=== PATIENT | female | born 1980 | race Caucasian/White ===

== ENCOUNTER → 2018-11-11 08:55 | Outpatient (CLI) | payer OTHER, SELFPAY ==
[2018-11-11 08:22] VITALS: BMI 25.5
[2018-11-11 09:24] LABS: Absolute Lymphocyte Count 1.61 X10^3/ul (0.83-4.51); Absolute Neutrophil Count 2.9 X10^3/uL (2.0-7.7); Basophil# 0.02 X10^3/uL; Basophil% 0.4 % (0-1); Eosinophil# 0.09 X10^3/uL; Eosinophils% 1.8 % (0-5); Hematocrit 43.8 % (37-47); Hemoglobin 14.5 g/dl (12.0-15.0); Lymphocyte # 1.61 X10^3/ul (4.0); Lymphocyte % 32.1 % (19-41); Mean Corp Hgb Conc 33.1 g/gl (32-36); Mean Corpuscular Hgb 29.4 pg (27.0-32.0); Mean Corpuscular Volume 88.7 fL (81-99); Mean Platelet Vol. 12.3 fl (6.2-12.0); Monocyte# 0.41 X10^3/uL; Monocyte% 8.2 % (0-10); Neutrophil # 2.88 X10^3/uL (2.7-7.7); Neutrophil % 57.5 % (47-70); POSITIVE COUNT NO; POSITIVE DIFFERENTIAL NO; POSITIVE MORPHOLOGY NO; Platelet Count 206 K/mm3 (150-450); RBC Distribution Width CV 12.7 % (11.6-14.6); Red Blood Count 4.94 M/mm3 (4.2-5.4)
[2018-11-11 09:56] LABS: Follicle Stimulating Hormone 9.7 mIU/mL; Thyroid Stim Hormone (TSH) 1.91 uIU/mL (0.358-3.74)
--- OUTSIDE RECORDS SUMMARY | 2018-12-28 02:26 | XMS RPT_ITS ---
:1980 Author Organization OHIP Care Team Providers Name Role Phone SWATHI WEEMS Attending Unavailable KULWINDER TSAI Primary Care Unavailable Candi Berry Attending Unavailable Kulwinder Tsai Referring Unavailable Candi Berry Attending Unavailable Candi Berry Referring Unavailable Kulwinder Tsai Primary Care Unavailable Candi Berry Attending Unavailable Kulwinder Tsai Primary Care Unavailable Candi Berry Attending Unavailable Kulwinder Tsai Referring Unavailable PROBLEMS PROBLEMS DATE TYPE CONDITION / CODE ATTENDING STATUS SOURCE 11/18/2018 Unknown Z97.5 - Presence of Candi Berry Active [place] (intrauterine) [facility] contraceptive Hospital device / Repository Z97.5(ICD-10) 11/18/2018 Unknown Z30.432 - Encounter JamalCandi braun Active [place] for removal of [facility] intrauterine Hospital contraceptive Repository device / Z30.432(ICD-10) 11/18/2018 Unknown Z30.433 - Encounter [place], Molly Active [place] for removal and Community reinsertion of Hospital intrauterine Repository contraceptive device / Z30.433(ICD-10) 11/11/2018 Unknown R23.2 - [place] / [place], Molly Active [place] R23.2(ICD-10) [facility] Hospital Repository 06/08/2018 Admitting Ganglion, left WEEMS, SWATHI Active [facility] diagnosis wrist / MISHEL Three M67.432(ICD-10) Repository 09/27/2018 Unknown Z12.31 - Encounter Candi Berry Active [place] for screening [facility] mammogram for Hospital malignant neoplasm Repository of breast / Z12.31(ICD-10) PROCEDURES PROCEDURES No Procedure Records FoundRESULTS RESULTS SPECIAL EVENTS PLANNER OFFICE VISIT Observed: 11/25/2018 Status: F Source: M[place]ANIE REPORT 1:11 PM [facility] HOSPITAL REPOSITORY [facility] [address] [place] [address]. [address] [place] [address] OFFICE VISIT Date of Service: 11/11/18 MR#: [id number] Acct: [id number] Name: DAE JEFFREY Rep #: [id number] : 1980 Provider: IRWIN Berry Age/Sex: 38/F [place] [facility] [place]: Signed with Addenda ADDENDUM by IRWIN Berry on 11/25/18 at 1311 Addendum entered and electronically signed by DAFNE Vargas 11/25/18 13:11: Assessment AND Plan Problems 1. Encounter for gynecological examination without abnormal finding Z01.419 2. Encounter for removal and reinsertion of intrauterine contraceptive device (IUD) Z30.433 3. Hot flashes R23.2 Plan - DAFNE Vargas Completed breast and pelvic exam Reviewed diet and exercise Pap 2014 Mammogram ordered Contraception will arrange for removal and replacement of iud FSH, TSH, CBC RTO 1 year, prn with problems Candi Berry ELECTROPLATER APPRENTICE Orders Orders: 11/25/18 1311 <Electronically signed by Candi LEOS> Date Candi Berry cc: * Signed ADDENDUM by IRWIN Berry on 11/25/18 at 1311 OFFICE PROCEDURES Office Procedure Documentation entered by DAFNE Vargas 11/25/18 13:11: IUD Removal IUD Removal Details: Sign out documentation: Completed Procedure: Speculum placed in vagina, IUD string visualized and grasped with ring forceps. 11/25/18 1311 <Electronically signed by Candi LEOS> Date Candi Berry cc: * Signed Intake Vital Signs11/11/18 Height 5 ft 6 in 11/11/18 Weight: 158 lb 4 oz 11/11/18 Body Mass Index (BMI) 25.5 11/11/18 Blood Pressure 102/62 Intake Visit Reasons: est annual last seen 10/07/2017 Chief Complaint: est annual Network Designer Required: No Is patient in pain?: No Allergies No Known Allergies Allergy (Unverified 11/11/18 08:22) Is last menstrual period known: No Post menopausal: No Patient : No : No [facility] Medical History History of abnormal cervical Pap smear (Acute) Surgical History History of neck surgery (Acute) Family History Grandmother Breast cancer Mother Breast cancer Social History Smoking Status: Never smoker alcohol intake: never substance use type: does not use caffeine: Yes what type of physical activity do you participate in: walking seatbelt use: always do you feel safe at home: Yes 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 Pregancy History 3 Elective abortions Hx Para 3 Spontaneous abortions Past Pregnancies Del. DateName GA/Weeks Outcome Route Bth WeighInfant GeLabor LgtAnesthesiDel LocatProvider FOB t n h a n HPI est annual last seen 10/07/2017: Details: DAE JEFFREY is a 38 year old who presents for annual exam. Having night sweats. Needs mirena replaced Last PAP: 2014 History of abnormal PAP: no Last mammogram: 2016 History of abnormal mammogram: no Female Reproductive History Questions: Metorrhagia: No, Sexually active: Yes, Dyspareunia: No, PCB: No Menopausal Symptoms: Yes hot flashes ROS Const Constitutional: Reports as per HPI Cardio Card: Denies chest pain Resp Resp: Denies cough or shortness of breath with activity GI GI: Denies abdominal pain, constipation, change in stools, vomiting or bloating : Reports as per HPI and hot flashes; denies urinary frequency, pelvic pain, urinary urgency, vaginal discharge, vaginal itching, urinary incontinence or difficulty urinating Exam Const General: cooperative, healthy appearing, no acute distress, well developed Orientation: alert, oriented to person, oriented to place HENMT Head: normal to inspection Neck Neck: normal visual inspection Thyroid: thyroid normal Lymphatic: no lymphadenopathy noted Chest Breast inspection: normal inspection of the breasts, normal inspection of the axillae Breast palpation: normal palpation of the breasts, normal palpation of the axillae, no axillary lymphadenopathy Resp Effort AND Inspection: normal respiratory effort GI Palpation: soft, nontender, no masses Rectal Exam: deferred External Female Exam: normal external appearance, normal appearance of the urethra Urethra: normal appearance of the urethra, normal palpation Speculum Exam - Vagina: normal appearance of the vagina, normal vaginal discharge Speculum Exam - Cervix: normal appearance of the cervix Bimanual Exam- Vagina AND Uterus: normal bimanual exam, uterine size normal, uterine shape normal, uterus non-tender Bimanual Exam- Adnexa, other: normal adnexae, no adnexal masses, adnexae non-tender, pelvic support normal Pelvic Support: normal Neuro General: alert, oriented x3 Psych Affect: normal affect Assessment AND Plan Problems 1. Encounter for gynecological examination without abnormal finding Z01.419 2. Encounter for removal and reinsertion of intrauterine contraceptive device (IUD) Z30.433 3. Hot flashes R23.2 Plan Completed breast and pelvic exam Reviewed diet and exercise Pap 2014 Mammogram ordered Contraception will arrange for removal and replacement of iud FSH, TSH, CBC RTO 1 year, prn with problems Candi Berry ELECTROPLATER APPRENTICE Orders Orders: Coding Level of Care Code Off vis,est,prev 40-64yrs Diagnoses Encounter for gynecological examination without abnormal finding Z01.419 Gynecological examination findings: abnormal findings ABSENT Encounter for removal and reinsertion of intrauterine contraceptive device (IUD) Z30.433 Contraceptive encounter type: IUD management IUD management: removal and reinsertion Hot flashes R23.2 11/11/18 0913 <Electronically signed by Candi LEOS> Date Candi LEOS Cosigner Signature: Date (if applicable) CC: SPECIAL EVENTS PLANNER OFFICE VISIT Observed: 11/18/2018 Status: F Source: MELANIE REPORT 3:41 PM [facility] REPOSITORY [facility] [address] [place] [address] OFFICE VISIT Date of Service: 11/18/18 MR#: [id number] Acct: [id number] Name: DAE JEFFREY [place] Rep #: [id number] : 1980 Provider: IRWIN Berry Age/Sex: 38/F [place] [facility] [place]: Signed with Addenda ADDENDUM by Dior Simon on 11/18/18 at 1546 OFFICE PROCEDURES Office Procedure Documentation entered by Dior Simon 11/18/18 15:41: Office Meds levonorgestrel Performing Provider: DAFNE Vargas Administered by: DAFNE Vargas on 11/18/18 14:45 Dose Route Admin Location Lot Number Expiration Date [facility] Bumper Operator 1 insert Intrauterine [place] [id number] 07/30/22 9767-4898-11 [employer] levonorgestrel Performing Provider: DAFNE Vargas Documented (not given) by: Dior Simon on 11/18/18 15:40 11/18/18 1541 <Electronically signed by Dior Simon > Date Dior Simon cc: * Signed ADDENDUM by Dior Simon on 11/18/18 at 1540 OFFICE PROCEDURES Office Procedure Documentation entered by Dior Simon 11/18/18 15:40: Liletta IUD IUD Details: Sign in Communication: Completed Sign out documentation: Completed The uterus sounded to [] cm. After prepping the cervix with betadine and using sterile technique, the cervix was grasped with a single tooth tenaculum and the IUD was inserted without difficulty and the string was cut to 3cm from the external os of the cervix. All instruments were removed from the vagina and excellent hemostasis was noted. Procedure Summary: patient tolerated the procedure well without complication. levonorgestrel 20 mcg/24 hr (5 years) intrauterine device 1 insert Intrauterine ONCE IUD Details: Sign in Communication: Completed Sign out documentation: Completed The uterus sounded to [] cm. After prepping the cervix with betadine and using sterile technique, the cervix was grasped with a single tooth tenaculum and the IUD was inserted without difficulty and the string was cut to 3cm from the external os of the cervix. All instruments were removed from the vagina and excellent hemostasis was noted. Procedure Summary: patient tolerated the procedure well without complication. Office Meds levonorgestrel Performing Provider: DAFNE Vargas Administered by: DAFNE Vargas on 11/18/18 14:45 Dose Route Admin Location Lot Number Expiration Date [facility] Bumper Operator 1 insert Intrauterine [place] [id number] 07/30/22 [id number] [employer] levonorgestrel Performing Provider: DAFNE Vargas Documented (not given) by: Dior Simon on 11/18/18 15:40 11/18/18 1540 <Electronically signed by Dior Simon > Date Dior Simon cc: * Signed ADDENDUM by Dior Simon on 11/18/18 at 1540 OFFICE PROCEDURES Office Procedure Documentation entered by Dior Simon 11/18/18 15:40: Liletta IUD IUD GC/Chlamydia:: not done Test: Yes Not Applicable Consent Signed: Yes Time out checklist: patient, procedure, site marked/identified, positioning of patient, supplies available, allergies confirmed, team agrees on procedure IUD: Yes Yanci Time out time: 14:52 Details: Sign in Communication: Completed Sign out documentation: Completed The uterus sounded to 8 cm. After prepping the cervix with betadine and using sterile technique, the cervix was grasped with a single tooth tenaculum and the IUD was inserted without difficulty and the string was cut to 3cm from the external os of the cervix. All instruments were removed from the vagina and excellent hemostasis was noted. Procedure Summary: patient tolerated the procedure well without complication. levonorgestrel 20 mcg/24 hr (5 years) intrauterine device 1 insert Intrauterine ONCE IUD Details: Sign in Communication: Completed Sign out documentation: Completed The uterus sounded to [] cm. After prepping the cervix with betadine and using sterile technique, the cervix was grasped with a single tooth tenaculum and the IUD was inserted without difficulty and the string was cut to 3cm from the external os of the cervix. All instruments were removed from the vagina and excellent hemostasis was noted. Procedure Summary: patient tolerated the procedure well without complication. Office Meds levonorgestrel Performing Provider: DAFNE Vargas Administered by: DAFNE Vargas on 11/18/18 14:45 Dose Route Admin Location Lot Number Expiration Date [employer] Bumper Operator 1 insert Intrauterine [place] [id number] 07/30/22 [id number] [employer] 11/18/18 1540 <Electronically signed by Dior Simon > Date Dior Simon cc: * Signed Intake Vital Signs11/18/18 Height 5 ft 6 in 11/18/18 Weight: 160 lb 4 oz 11/18/18 Body Mass Index (BMI) 25.8 11/18/18 Blood Pressure 118/80 Intake Visit Reasons: REMOVE/REPLACE MIRENA Network Designer Required: No Is patient in pain?: No Allergies No Known Allergies Allergy (Verified 11/18/18 14:40) levonorgestrel 1 insert Intrauterine ONCE PFSH PFSH Medical History History of abnormal cervical Pap smear (Acute) Surgical History History of neck surgery (Acute) Family History Grandmother Breast cancer Mother Breast cancer Social History Smoking Status: Never smoker alcohol intake: never substance use type: does not use caffeine: Yes what type of physical activity do you participate in: walking seatbelt use: always do you feel safe at home: Yes 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 Pregancy History 3 Elective abortions Hx Para 3 Spontaneous abortions Past Pregnancies Del. DateName GA/Weeks Outcome Route Bth WeighInfant GeLabor LgtAnesthesiDel LocatProvider FOB t n h a n HPI REMOVE/REPLACE MIRENA: Details: DAE JEFFREY is a 38 year old who presents for removal of mirena IUD and insertion of liletta IUD Office Procedures IUD Removal IUD Removal Details: Sign out documentation: Completed Procedure: Speculum placed in vagina, IUD string visualized and grasped with ring forceps. IUD easily removed Liletta IUD IUD GC/Chlamydia:: not done Test: Yes Not Applicable Consent Signed: Yes Time out checklist: patient, procedure, site marked/identified, positioning of patient, supplies available, allergies confirmed, team agrees on procedure IUD: Yes Yanci Time out time: 14:52 Details: Sign in Communication: Completed Sign out documentation: Completed The uterus sounded to 8 cm. After prepping the cervix with betadine and using sterile technique, the cervix was grasped with a single tooth tenaculum and the IUD was inserted without difficulty and the string was cut to 3cm from the external os of the cervix. All instruments were removed from the vagina and excellent hemostasis was noted. Procedure Summary: patient tolerated the procedure well without complication. levonorgestrel 20 mcg/24 hr (5 years) intrauterine device 1 insert Intrauterine ONCE IUD Details: Sign in Communication: Completed Sign out documentation: Completed The uterus sounded to [] cm. After prepping the cervix with betadine and using sterile technique, the cervix was grasped with a single tooth tenaculum and the IUD was inserted without difficulty and the string was cut to 3cm from the external os of the cervix. All instruments were removed from the vagina and excellent hemostasis was noted. Procedure Summary: patient tolerated the procedure well without complication. Office Meds levonorgestrel Performing Provider: DAFNE Vargas Documented (not given) by: DAFNE Vargas on 11/18/18 14:45 Dose Route Admin Location Lot Number Expiration Date [employer] Bumper Operator 1 insert Intrauterine Assessment AND Plan Problems 1. Remove/insert IUD Z30.433 Plan Reviewed S AND S infection and condom use. Written information given RTO 6 weeks Orders Orders: Medications New: Coding Level of Care Code No Charge Diagnoses Remove/insert IUD Z30.433 Additional Codes IUD (97980) 11/18/18 1456 <Electronically signed by Candi LEOS> Date Candi LEOS Cosigner Signature: Date (if applicable) CC: CBC W/DIFF, AUTOMATED Collected: 11/11/2018 Status: F Source: MELANIE 9:08 AM [facility] REPOSITORY TYPE CODE TESTS RESULT OUT OF RANGE REFERENCE UNITS LAB L100.1000 4.4-11.0 K/mm3 Normal WBC 5.0 LAB L100.1200 4.2-5.4 M/mm3 Normal RBC 4.94 LAB L100.1300 12.0-15.0 g/dl Normal HGB 14.5 LAB L100.1400 37-47 % Normal HCT 43.8 LAB L100.1500 81-99 fL Normal MCV 88.7 LAB L100.1600 27.0-32.0 pg Normal MCH 29.4 LAB L100.1700 32-36 g/gl Normal MCHC 33.1 LAB L100.1810 11.6-14.6 % Normal RDW CV 12.7 LAB L100.1820 35.1-43.9 fl Normal RDW SD 41.0 LAB L100.1900 150-450 K/mm3 Normal PLT 206 LAB L100.2000 6.2-12.0 fl High MPV 12.3 LAB L100.2100 47-70 % Normal NEUT% 57.5 LAB L100.2200 19-41 % Normal LY% 32.1 LAB L100.2300 0-10 % Normal MONO% 8.2 LAB L100.2400 0-5 % Normal EO% 1.8 LAB L100.2500 0-1 % Normal BASO% 0.4 LAB L100.2550 0.0-0.9 % Normal IM GRAN % 0.000 Result Comment: IG% - Immature Granulocytes (promyelocytes, myelocytes and metamyelocytes) > 1% indicates that a LEFT SHIFT is Present. LAB L100.2620 2.0-7.7 X10 3/uL Normal Absolute Neut 2.9 LAB L100.2720 0.83-4.51 X10 3/ul Normal Absolute Lymph 1.61 Performed By: #### L100.0100 #### [facility] Laboratory [address] [place], [place], [id number] THYROID STIM HORMONE Collected: 11/11/2018 Status: F Source: MELANIE (TSH) 9:08 AM [facility] REPOSITORY TYPE CODE TESTS RESULT OUT OF RANGE REFERENCE UNITS LAB L501.9520 0.358-3.74 uIU/mL Normal TSH 1.91 Performed By: #### L501.9520, L3100.5125 #### [facility] Laboratory [address] [facility]. [place], [place], [address] FOLLICLE STIMULATING Collected: 11/11/2018 Status: F Source: MELANIE HORMONE 9:08 AM [facility] REPOSITORY TYPE CODE TESTS RESULT OUT OF RANGE REFERENCE UNITS LAB L3100.5125 mIU/mL Normal FSH 9.7 Result Comment: NORMAL REFERENCE RANGES FEMALE FOLLICULAR 2.3 - 12.6 mIU/mL MID-CYCLE PEAK 5.2 - 17.5 mIU/mL LUTEAL 1.7 - 12.9 mIU/mL POST-MENOPAUSAL ON MHT 5.9 - 72.8 mIU/mL NOT ON MHT 12.7 - 132.2 mlU/mL MALE 0.7 - 10.8 mIU/mL NEW TEST METHOD AND REFERENCE RANGES APRIL 19, 2012 Performed By: #### L501.9520, L3100.5125 #### [facility] Laboratory [address] [facility] [place], [address] SCREENING MAMM (CAD), Observed: 12/25/2017 Status: F Source: MELANIE BILAT 9:31 AM [facility] REPOSITORY [facility] Imaging Services [address] [place] [address] SCREENING MAMM (CAD), BILAT MR#: [id number] Acct: [id number] Name: DAE JEFFREY Rep #: [id number] : 1980 F 37 From: Anson Block MD PCP: Kulwinder Tsai Status: REG CLI Study: SCREENING MAMM (CAD), BILAT Date of Exam: 12/25/17 Exam# [id number] Ordering Dr: Candi Berry ASTROPHYSICS TEACHER-[place] MAMMOGRAPHY - BILATERAL SCREENING REASON FOR EXAM: Female, 37 years old. Routine annual screening examination. PERTINENT HISTORY: Mother with breast cancer. Grandmother with breast cancer. TECHNIQUE: Digital bilateral breast patrick (3D mammographic acquisition) in the CC and MLO projections. 2-D mediolateral oblique (MLO) and craniocaudad (CC) views of both breasts were obtained. CAD: Full Field Digital Mammography with Computer Added Detection was performed. COMPARISON: Comparison is made with prior outside examination dated May 01, 2015. FINDINGS: Breast Composition: There are scattered areas of fibroglandular density. There are no dominant masses or suspicious calcifications. No other significant abnormalities are identified. There has been no significant change since the prior study. HPBI/SCREENING MAMM (CAD), BILAT IMPRESSION: Stable bilateral screening mammogram. Yearly follow-up mammogram recommended. (A) ASSESSMENT CATEGORY: BIRADS Category 1: Negative. A letter regarding these results will be sent to the patient by the facility within 30 days. Approximately 10% of breast cancers are not detected by mammography. A normal mammogram should not delay biopsy of a clinically suspicious abnormality. [id number] Electronically Signed: Anson Block MD at 10:59 EST Tel [phone], Service support , CC: IRWIN Berry; Kulwinder Tsai Sales Attendant: Signed ALLERGIES ALLERGIES DATE TYPE / CODE NAME / CODE REACTION SEVERITY SOURCE 11/18/2018 Drug No Known Unknown [facility] Allergy/416 Allergies/U49593 Hospital 609381(SNOM 0388(RXNORM) Repository ED CT) Drug NO KNOWN [facility] Class/99496 ALLERGIES Repository 1003(SNOMED CT) ENCOUNTERS ENCOUNTERS ADMIT/DISCHARGE ACCOUNT NUMBER ADMITTING ENCOUNTER LOCATION SOURCE CLASS 11/18/2018/11/18/20 [id number] Ambulatory BMS[facility]: [facility]ository 11/11/2018 [id number] Ambulatory [facility] ding:PAVLAB Repository 11/11/2018/11/11/20 [id number] Ambulatory BMSBuilding: [place] [facility] Repository 06/08/2018/06/08/20 [id number] Ambulatory Building:[place] [address] [facility] Repository 12/25/2017 [id number] Ambulatory [facility] ding:BI Repository PAYERS PAYERS ENCOUNTER GUARANTOR PAYER SUBSCRIBER SOURCE 11/18/2018 AJ BARCENAS2 [place] [address], Insurance:MEDICAL WADEDOB: [place] [address]Gzi: [facility] [id number] Hospital Number: Repository () [id number] Date:7521-66-71EA [address] [place] [phone]: 11/18/2018 Secondary NOT GIVENUNK [place] Insurance:SELF PAY [facility] Number: Effective Repository Date:2018-11-18 11/11/2018 AJ [id number] Primary DAE Navarro [address], Insurance:MEDICAL WADEDOB: [facility] [place] [address]Zkz: [facility] [id number] Hospital Number: Repository () [id number] Date:6614-08-35CO [address] [address]RE: 11/11/2018 Secondary NOT GIVENUNK [place] Insurance:SELF PAY [facility] Number: Effective Repository Date:2018-11-11 11/11/2018 Aj Donahuede1452 Primary DAE Saldivar[address], Insurance:MEDICAL WADEDOB: [facility] [address]Yjl: [facility] [id number] Hospital Number: Repository () [id number] Date:2640-81-71OE [address] [place] [phone]: 11/11/2018 Secondary NOT GIVENUNK [place] Insurance:SELF PAY [facility] Number: Effective Repository Date:2018-11-11 06/08/2018 [facility] WADEDOB: Insurance:OPolicy WADEDOB: Three Repository Number: [id number] [place] [address] [id number] [address] Date:2314-17-32MD [address] [place] [phone]: [phone]) [address] [phone] (HP) [phone]: 12/25/2017 Aj Donahuede1452 Primary [facility]AE [facility], Insurance:MEDICAL WADEDOB: [facility] [address]Bql: [facility] [id number] Hospital Number: Repository () [id number] Date:0625-26-00[address] [address]SD: 12/25/2017 Secondary NOT GIVENKARINE Navarro Insurance:SELF PAY [facility] Number: Effective Repository Date:2017-10-19
== END ==
PROVIDERS: Referring Provider Nurse Practitioner Women's Health; Visit Provider Nurse Practitioner Women's Health
DX: R23.2 Flushing (principal)
CPT/HCPCS: 36415; 83001; 84443; 85025

== ENCOUNTER → 2019-01-03 13:03 | Outpatient (CLI) | payer OTHER, SELFPAY ==
[2018-11-11 08:22] VITALS: BMI 25.5
[2018-12-30 14:54] VITALS: BMI 25.8
--- NOTE | 2019-01-03 13:12 | BI_ITS ---
MAMMOGRAPHY - BILATERAL SCREENING REASON FOR EXAM: Female, 38 years old. Routine annual screening examination. PERTINENT HISTORY: Mother with breast cancer. Grandmother with breast cancer. TECHNIQUE: Digital bilateral breast patrick (3D mammographic acquisition) in the CC and MLO projections. 2-D mediolateral oblique (MLO) and craniocaudad (CC) views of both breasts were obtained. CAD: Full Field Digital Mammography with Computer Added Detection was performed. COMPARISON: Comparison is made with prior study dated December 25, 2017. FINDINGS: Breast Composition: There are scattered areas of fibroglandular density. There are no dominant masses or suspicious calcifications. No other significant abnormalities are identified. There has been no significant change since the prior study. BI/SCREENING MAMM (CAD), BILAT IMPRESSION: Stable bilateral screening mammogram. Yearly follow-up mammogram recommended. (A) ASSESSMENT CATEGORY: BIRADS Category 1: Negative. A letter regarding these results will be sent to the patient by the facility within 30 days. Approximately 10% of breast cancers are not detected by mammography. A normal mammogram should not delay biopsy of a clinically suspicious abnormality. [id number] Electronically Signed: Anson Block MD at 15:58 EST , Service support ,
== END ==
PROVIDERS: Referring Provider Nurse Practitioner Women's Health; Visit Provider Nurse Practitioner Women's Health
DX: Z12.31 Encounter for screening mammogram for malignant neoplasm of breast (principal)
CPT/HCPCS: 77063; 77067

== ENCOUNTER → 2020-05-22 10:01 | Outpatient (CLI) | payer OTHER, SELFPAY ==
[2018-12-30 14:54] VITALS: BMI 25.8
[2020-05-22 09:20] VITALS: BMI 25.8
--- NOTE | 2020-05-22 10:01 | BI_ITS ---
MAMMOGRAPHY - BILATERAL SCREENING 3-D TOMOSYNTHESIS REASON FOR EXAM: Female, 40 years old. Routine screening PERTINENT HISTORY: BILAT SCREENING - FAM HX OF MOTHER @ AGE 40''S @ MATERNAL GRANDMOTHER @ AGE ? - NO PREV SURG''S- CURRENT MIRENA X 10+ YRS. TECHNIQUE: 2-D mammograms and 3-D Tomosynthesis of the breast (s) were performed. CAD was performed. COMPARISON: 01/03/2019 FINDINGS: The breast composition is heterogeneously dense that can obscure small breast masses. Scattered benign calcifications are seen. No dense spiculated masses or suspicious microcalcifications are identified. No architectural distortion is identified. There is no skin thickening or retraction. There has been no significant change since the prior study. BI/SCREEN MAMM (CAD) W/ROBERT BILAT IMPRESSION: No mammographic signs of malignancy. Routine yearly mammograms recommended. ASSESSMENT CATEGORY: BIRADS Category 2: Benign. A letter regarding these results will be sent to the patient by the facility within 30 days. FOLLOW UP RECOMMENDATION: Yearly follow up mammogram recommended. (A) Approximately 10% of breast cancers are not detected by mammography. A normal mammogram should not delay biopsy of a clinically suspicious abnormality. Electronically Signed: Silvino Carpenter MD at 11:54 EDT , Service support ,
== END ==
PROVIDERS: Referring Provider Nurse Practitioner Women's Health; Visit Provider Nurse Practitioner Women's Health
DX: Z12.31 Encounter for screening mammogram for malignant neoplasm of breast (principal)
CPT/HCPCS: 77063; 77067

== ENCOUNTER 2021-12-02 10:38 | Outpatient (CLI) | payer OTHER, SELFPAY | END 2021-12-02 23:59 | disposition short-term general hospital (02) | LOC: LABSPEC 10:38 | PROVIDERS: Referring Provider Physician Assistant; Visit Provider Physician Assistant | DX: U07.1 COVID-19 (principal) | CPT/HCPCS: 87635; U0003; U0005 ==

== ENCOUNTER → 2022-09-30 | Outpatient (CLI) | payer OTHER, SELFPAY ==
--- NOTE | 2022-09-30 15:05 | BI_ITS ---
MAMMOGRAPHY - BILATERAL SCREENING REASON FOR EXAM: Female, 42 years old. Routine annual screening examination. PERTINENT HISTORY: Mother with breast cancer. Grandmother with breast cancer. TECHNIQUE: Digital bilateral breast robert (3D mammographic acquisition) in the CC and MLO projections. 2-D mediolateral oblique (MLO) and craniocaudad (CC) views of both breasts were obtained. CAD: Full Field Digital Mammography with Computer Added Detection was performed. COMPARISON: Comparison is made with prior study dated 05/22/2020 and 01/03/2009. FINDINGS: Breast Composition: The breasts are heterogeneously dense, which may obscure small masses. There is a 6.5 mm x 8.9 mm well-defined nodule in the central depth of the left breast. Correlation with ultrasound is recommended. No other significant abnormalities are identified. BI/SCRN MAMM (CAD)W/ROBERT BILAT IMPRESSION: 6.5 mm x 8.9 mm well-defined nodule in the central depth of the left breast. Correlation with ultrasound is recommended. ASSESSMENT CATEGORY: BIRADS Category 0: Incomplete. Need additional imaging evaluation. A letter regarding these results will be sent to the patient by the facility within 30 days. Approximately 10% of breast cancers are not detected by mammography. A normal mammogram should not delay biopsy of a clinically suspicious abnormality. [id number] Electronically Signed: Anson Block MD at 8:10 EDT ,
[2022-10-07 17:26] LABS: HPV APTIMA, High Risk Negative (Negative)
== END | disposition home or self-care (01) ==
PROVIDERS: Referring Provider Nurse Practitioner Women's Health; Visit Provider Nurse Practitioner Women's Health
DX: Z12.31 Encounter for screening mammogram for malignant neoplasm of breast (principal)
CPT/HCPCS: 77063; 77067; 87624; 88175; G0145

== ENCOUNTER → 2022-10-06 | Outpatient (CLI) | payer OTHER, SELFPAY ==
--- NOTE | 2022-10-06 14:59 | US_ITS ---
STUDY: ULTRASOUND BREAST - LEFT REASON FOR EXAM: Female, 42 years old. Abnormal screening mammogram. TECHNIQUE: Axial and longitudinal images of the LEFT breast were performed with a high resolution ultrasound transducer. # OF IMAGES: 13 COMPARISON: Comparison is made with prior mammogram dated 09/30/2022. FINDINGS: LEFT Breast: The mammographic abnormality corresponds to a 8 mm x 9 mm x 5 mm hypoechoic irregular solid nodule. The nodule is taller than it is wide. This is at the 6 o''clock position of the breast at 5 cm from the nipple. Biopsy recommended. US/Breast Limited Unilateral IMPRESSION: 8 mm x 9 mm x 5 mm hypoechoic irregular solid nodule at the 6 o''clock position in the breast at 5 cm from the nipple. Biopsy recommended. ASSESSMENT CATEGORY: BIRADS Category 4: Suspicious - Biopsy Should Be Considered. A letter regarding these results will be sent to the patient by the facility within 30 days. Electronically Signed: Anson Block MD at 15:34 EST ,
== END | disposition home or self-care (01) ==
LOC: OPUS 14:57
PROVIDERS: Visit Provider Nurse Practitioner Women's Health
DX: N63.0 Unspecified lump in unspecified breast (principal)
CPT/HCPCS: 76642

== ENCOUNTER 2022-10-14 16:45 | Outpatient (CLI) | payer OTHER, SELFPAY ==
--- NOTE | 2022-10-14 15:00 | BRBX_PTH ---
PATIENT: DAE JEFFREY LOC: [facility] U#:[id number] AGE/SX: 42/F ROOM: RE10/14/[address]: Dr. Ian Keita MD : 1980 BED: DIS: 10/14/2022 SPEC #: [id number] RECD: 10/14/22 16:39 STATUS: NILAD REEmmy #: [id number] WILBER: 10/14/22 15:[address]: Ian Keita DEPT: SURGICAL PATHOLOGY RECD BY: Johanny Castillo ENTERED: 10/15/22 11:41 SP TYPE: BREAST BX OTHR DR: Dr. Erick Tsai MD Tissues: Left breast, NOS Procedures: Surgery Specimen Level IV HEADER OPERATION: Left breast biopsy PRE-OP DIAGNOSIS: Abnormal breast US, left TISSUE SUBMITTED: Left breast tissue MICROSCOPIC DIAGNOSIS Left breast tissue, biopsy: Hyalinized fibroadenoma. Negative for atypia or malignancy. /SJ 10/16/22 COMMENT Correlation with clinical, radiologic findings and appropriate follow up are necessary. MICROSCOPIC DESCRIPTION Slides are reviewed. GROSS DESCRIPTION Received in formalin is one container labeled with the patient name and designated left breast tissue. The specimen consists of multiple irregular and elongated fragments of simon yellow fibroadipose tissue meauring in aggregate 1.5 x 0.3 x 0.1cm. The specimen is totally submitted in one cassette. / SJ:cc 10/15/2022 TC:1 CPT:59178
== END 2022-10-14 23:59 | disposition home or self-care (01) ==
LOC: LABSPEC 16:46
PROVIDERS: Visit Provider Surgery
DX: R92.8 Other abnormal and inconclusive findings on diagnostic imaging of breast (principal)
CPT/HCPCS: 88305

== ENCOUNTER → 2024-07-19 | Outpatient (CLI) | payer OTHER, SELFPAY ==
--- NOTE | 2024-07-19 08:52 | BI_ITS ---
MAMMOGRAPHY - BILATERAL DIAGNOSTIC REASON FOR EXAM: Female, 44 years old. Superficial palpable lump in the slightly upper medial aspect of the right breast. PERTINENT HISTORY: Grandmother with breast cancer. TECHNIQUE: Digital bilateral breast patrick (3D mammographic acquisition) in the CC and MLO projections. 2-D mediolateral oblique (MLO) and craniocaudad (CC) views of both breasts were obtained. CAD: Full Field Digital Mammography with Computer Added Detection was performed. COMPARISON: Comparison is made with prior study of September 30, 2022 and May 22, 2012. FINDINGS: Breast Composition: The breasts are heterogeneously dense, which may obscure small masses. There are no dominant masses or suspicious calcifications. A tissue clip marker is seen within a tiny nodule in the central portion of the left breast. No other significant abnormalities are identified. There has been no significant change since the prior study. BI/DIAG MAMM W/CAD, BILAT IMPRESSION: Stable bilateral diagnostic mammogram. With the patient''s history of a palpable lump in the right breast, targeted to correlation with ultrasound is recommended. ASSESSMENT CATEGORY: BIRADS Category 0: Incomplete. Need additional imaging evaluation. A letter regarding these results will be sent to the patient by the facility within 30 days. Approximately 10% of breast cancers are not detected by mammography. A normal mammogram should not delay biopsy of a clinically suspicious abnormality. Electronically Signed: Anson Block MD at 10:17 EDT ,
--- NOTE | 2024-07-19 08:52 | US_ITS ---
STUDY: ULTRASOUND BREAST - RIGHT REASON FOR EXAM: Female, 44 years old. Palpable lump in the right breast. TECHNIQUE: Axial and longitudinal images of the RIGHT breast were performed with a high resolution ultrasound transducer. # OF IMAGES: 9 COMPARISON: Comparison is made with prior mammogram done earlier today. FINDINGS: RIGHT Breast: The upper medial aspect of the right breast was examined with ultrasound. There is evidence of a 5 mm x 6 mm x 4 mm cystic structure just deep to the subcutaneous tissue. This is 8 with a sebaceous cyst. This is at the 2:00 position breast at 12 cm from nipple. US/Breast Limited Unilateral IMPRESSION: The palpable abnormality corresponds to a 5 mm x 6 mm x 4 mm sebaceous cyst. ASSESSMENT CATEGORY: BIRADS Category 2: Benign. A letter regarding these results will be sent to the patient by the facility within 30 days. Electronically Signed: Anson Block MD at 12:04 EDT ,
== END | disposition home or self-care (01) ==
PROVIDERS: PCP Nurse Practitioner Family; Referring Provider Nurse Practitioner Family; Visit Provider Nurse Practitioner Family
DX: N60.01 Solitary cyst of right breast (principal)
CPT/HCPCS: 76642; 77062; 77066; G0279

== ENCOUNTER 2024-09-27 10:23 | Emergency (ER) | payer OTHER, SELFPAY ==
[2024-09-27 10:24] VITALS: BP 128/80; PULSE 87; RESP 18; TEMP 35.7; O2SAT 100; BMI 34.2
--- NOTE | 2024-09-27 12:09 | EDS_ITS ---
HPI History of Present Illness Chief Complaint: Other, Pain/Inj Detail of Chief Complaint: Posterior atraumatic neck pain with radiation to her right arm. Informant: patient and family Onset/Context/Timing Onset: Days Context: Gradual Onset Timing: Continuous Quality: Sharp Location: - (Lower neck radiating to her right arm.) Current Severity: Moderate Maximum Severity: Moderate Worsened by: improves with Movement Relieved by: Nothing Associated Symptoms Associated Symptoms: Tingling and - ( radiating to right shoulder and arm. ) Narrative Narrative: 44-year-old female has had a prior cervical disc removal and fusion. That was done about 8 years ago. She denies any recent fall injury or trauma. No fever or illness. States about a week ago started having pain in posterior neck radiating her right arm. She was seen in [place] ER the last several days was started on a steroid taper and written for Percocet for pain. She said the ster oid is not helping nor is the Percocet. She denies any significant weakness to her hand. No bowel or bladder incontinence. No fever. Prior similar symptoms: Yes Recent Illness/Hospitalization: No [facility] Medical History Anxiety History of abnormal cervical Pap smear Home Medications ?Medication ?Instructions ?Recorded ?Last Taken ?Type levonorgestrel 20.4 mcg/24 hr (up 1 insert intrauterine ONCE 12/30/18 Unknown History to 8 yrs) 52 mg intrauterine device (Liletta) paroxetine HCl 10 mg tablet (Paxil) 10 mg PO DAILY 05/22/20 Unknown History Allergy/AdvReac Type Severity Reaction Status Date / Time No Known Allergies Allergy Verified 09/27/24 10:24 Family History Grandmother Breast cancer Mother Breast cancer Surgical History History of neck surgery Social History Smoking Status: Current every day smoker tobacco type: cigarettes alcohol intake: never substance use type: does not use caffeine: Yes what type of physical activity do you participate in: walking seatbelt use: always do you feel safe at home: Yes additional social history: [employer] Patient works at the [employer] ROS ED ROS Narrative Denies recent illness. Atraumatic neck pain. Constitutional Constitutional ED: Denies chills or fever(s) Eyes Eyes: Denies blurry vision ENT ENT ED: Denies ear pain Cardiovascular Cardiovascular: Denies chest pain Respiratory/Chest Respiratory/Chest: Denies dyspnea Gastrointestinal Gastrointestinal: Denies abdominal pain Genitourinary Genitourinary ED: Denies dysuria or hematuria Musculoskeletal Musculoskeletal: Reports neck pain; Denies arthralgias, back pain or myalgias Integumentary Denies abscess or Abrasions Neurologic Neurologic: Denies headache(s) Endocrine Endocrinology: Denies cold intolerance Hematologic/Lymphatic Hematologic/Lymphatic: Denies easy bleeding Allergic/Immunologic Allergic/Immunologic ED: Denies mouth swelling EXAM Physical Exam Narrative Exam Narrative: 44-year-old female sitting upright in bed. Daughter at bedside. Vital signs are stable afebrile. H EENT exam unremarkable. Neck there is no reproducible neck pain. Trachea midline. There is no redness or warmth of her neck. No lymphadenopathy. She can flex and extend and rotate her neck. There is no muscle spasm. Upper back and shoulders are nontender. There is no muscle spasm or signs of trauma. Lungs are clear. Heart regular rhythm no murmur. Chest wall and ribs nontender. Abdomen soft nontender. She has 5 out of 5 tamale maker stre ngth bilaterally. Normal sensation in both upper and lower extremities. Normal range of motion. She can lift her right shoulder above her head. She has an old scar in her right posterior shoulder where the cyst was drained in the past. She has 5 out of 5 tamale maker strength of both hands. Normal sensation. No atrophy. Lower extremities are neurovascular intact with 5 out of 5 dorsi and plantarfl exion. Normal sensation. No cauda equina. She is awake and alert. Const Vital Signs: 09/27/24 10:24 09/27/24 11:11 Temperature 96.3 F L Temperature Source Temporal Pulse Rate 87 Respiratory Rate 18 Respiratory Pattern Normal Blood Pressure 128/80 H Blood Pressure Mean 96 Pulse Ox 100 Positive well nourished and well developed; Negative for cachectic, contractures or unkempt General Appearance ED: well developed and NAD; Negative for unkempt, cachectic, contractures or pallor Nutritional Appearance: Negative for cachectic HEENT Reports moist mucous membranes Negative for trauma or tenderness Eyes PERRL and EOMs intact bilaterally General Eye ED: Negative for pale conjunctiva or scleral icterus Neck no lymphadenopathy, supple and no JVD General: Negative for tenderness Thyroid: Negative for other Chest Wall Chest: Negative for other Resp normal respiratory effort and clear to auscultation bilaterally Auscultation: Negative for rales, rhonchi, wheezes or diminished lung sounds Cardio regular rate, regular rhythm, S1 normal heart sound, S2 normal heart sound and no murmurs Rate: Negative for bradycardia or tachycardic Rhythm: Negative for abnormal rhythm GI normal to inspection, nondistended, normoactive bowel sounds, soft to palpation, non-tender, non-distended and no masses Inspection: Negative for abdominal distention Palpation: Negative for tender, guarding or rebound tenderness present Back/Spine normal to inspection and no thoracic nor lumbar tenderness Back/Spine Narrative: No reproducible neck or back pain. No reproducible muscle pain or spasm. General Back: Negative for CVA tenderness Cervical Spine: Negative for cervical spine tenderness Thoracic Spine / Upper Back: Negative for paraspinal muscle tenderness Lumbar Spine / Lower Back: ROM limited Extremity normal to inspection and no clubbing, cyanosis or edema Extremity Narrative: Normal strength upper and lower extremities. Normal sensation. No atrophy. Neuro oriented x3 and no sensory deficits noted Sensorium / Orientation: alert; Negative for confused, lethargic or stuporous Motor Exam: strength 5/5 throughout Psych mental status grossly normal Appearance: Negative for unkempt Skin no rashes or lesions noted and no wounds General Skin Exam: Negative for jaundice or pallor Lesions: No lesion noted Rashes: No rashes noted Trauma: Negative for abrasion, puncture or other Wounds: Negative for wounds noted MDM MDM MDM Narrative Medical decision making narrative: 44-year-old female atraumatic nonreproducible neck pain with a prior history of a discectomy with fusion. Clinically I think this may be a inflamed cervical disc with radiculopathy. She has good strength and sensation currently. There is no muscular atrophy she does not need emergent MRI. She is on Percocet at home for pain and a steroid taper. She has an appointment to see her orthopedic neck surgeon Dr. Raymon Nina from [facility] this coming in 2 days. She was offered pain meds she deferred. Said she was given an injection in [place] the other day when she was in their ER and she had a vasovagal event and does not want that to happen again. She is comfortable with outpatient follow-up. History & Record Review Discussion w/independent historian: Patient and Family Discharge Plan Triage Chief Complaint: Other, Pain/Inj ED Provider: Star Valerio Dx/Rx/DC Orders Clinical Impression: Acute neck pain, Cervical radiculopathy, History of neck surgery Instructions: ED Neck Pain Prescriptions: No Action Liletta 19.5 mcg/24 hour (4 years) intrauterine device 1 insert Intrauterine ONCE paroxetine HCl [Paxil] 10 mg tablet 10 mg PO DAILY Primary Care Provider: Ranjith Santos NP Referrals: Richard Nina, [Non-Staff] - Keep Joyce appointment Ranjith Santos NP, [facility] [Primary Care Provider] - Activity Restrictions/Additional Instructions: Continue your steroid prescription. Use your home Percocet for pain. Keep your appointment with Dr. Nina of [facility] orthopedics for . Clinically I think this is a cervical disc in your neck. If you are not improving Dr. Nina can determine a further plan which may include possibly an MRI of your neck. Print Language: Mongolian Disposition Disposition: Home, Self Care
[2024-09-27 12:26] VITALS: BP 131/76; PULSE 76; RESP 14; TEMP 36.6; O2SAT 98
--- OUTSIDE RECORDS SUMMARY | 2024-09-27 17:20 | XMS RPT_ITS | CCD ---
Author Organization [facility] Care Team Providers Care Inventory Manager Name Role Phone JOSE KIRBY Attending Unavailable KULWINDER TSAI Primary Care Unavailable JOSE KIRBY Admitting Unavailable JOSE KIRBY Referring Unavailable KULWINDER TSAI Primary Care Unavailable Kulwinder Tsai Primary Care Provider Jillian Santos CNP Primary Care Provider JILLIAN SANTOS Primary Care Unavailable JENN VÁZQUEZ Attending UnavailAndrew Randolph Primary Care Provide r AVA CABRERA Attending Unavailable ANDREW SANTOS Primary Care Unavailable Medications Current Medications Medication Drug Class(es) Dates Sig (Normalized) Sig (Original) acetaminophen 325 mg / oxyCODONE hydrochloride 5 mg oral tablet (1 source) Opioid Agonist Start: 09-23-2024 End: 09-26-2024 take 1 tablet by mouth every six hours for pain oxyCODONE-acetamino phen (Percocet) 5-325 mg tablet Indications: Cervical radiculopathy , Cervical osteophyte Take 1 tablet by mouth every 6 hours if needed for severe pain (7 - 10) for up to 3 days. 12 tablet 09/23/2024 09/26/2024 Active levonorgestrel 0.674405 mg/hr intrauterine system (2 sources) Progestin, Progestin-containi ng Intrauterine Device Start: 06-24-2013 levonorgestrel (MIRENA) 20 mcg/24 hour (5 years) IUD Indications: Encounter for IUD insertion Insert one in office by provider 1 Each 0 06/24/2013 Active levonorgestrel ( MIRENA) 20 mcg/24 hr (5 years) IUD 1 each by Intrauterine route. 0 Active PARoxetine hydrochloride 10 mg oral tablet (1 source) Serotonin Reuptake Inhibitor Start: 03-08-2024 take 1 tablet by mouth once PARoxetine (PAXIL) 10 mg tablet Take 1 tablet by mouth every afternoon. 0 03/08/2024 Active predniSONE 20 mg oral tablet (1 source) Start: 09-23-2024 End: 10-02-2024 predniSONE (Deltasone) 20 mg tablet Indications: Cervical radiculopathy , Cervical osteophyte Take 1 tablet (20 mg) by mouth once daily for 9 days. ONE TAB THREE TIMES A DAY FOR 3 DAYS, THEN ONE TAB TWICE DAY FOR 3 DAYS, THEN ONE TAB DAILY FOR 3 DAYS 18 tablet 09/23/2024 10/02/2024 Active Completed/Discontinued Medications Medication Drug Class(es) Dates Sig (Normalized) Sig (Original) 2 ml ketorolac tromethamine 30 mg/ml injection (1 source) Nonsteroidal Anti-inflammatory Drug, Cyclooxygenase Inhibitor Start: 09-23-2024 End: 09-23-2024 inject 60 mg by intramuscular injection once 60 mg, intramuscular, Once, On Thu09/23/24 at 0920, For 1 dose methylPREDNISolone 125 mg injection (1 source) Corticosteroid Start: 09-23-2024 End: 09-23-2024 inject 125 mg by intramuscular injection once 125 mg, intramuscular, Once, On Thu09/23/24 at 0920, For 1 dose oxyCODONE hydrochloride 5 mg oral tablet (1 source) Opioid Agonist Start: 09-23-2024 End: 09-23-2024 take 5 mg by mouth once as needed for pain 5 mg, oral, Once, On Thu09/23/24 at 0920, For 1 dose, If ordered PRN for pain, nurse is permitted to administer this medication for higher pain scores based on patient preference? Yes, Indications: pain tropicamide 10 mg/ml ophthalmic solution (2 sources) Anticholinergic Start: 03-21-2024 End: 03-21-2024 tropicamide 1 % 1 Drop (MYDRIACYL) Problems Active Problems Problem Classification Problem Date Documented Date Episodic/Chronic Blindness and vision defects (3 sources) Bilateral hyperopia of eyes; Translations: [Hypermetropia, bilateral] 03-21-2024 Episodic Joint disorders and dislocations; trauma-related (1 source) Chondromalacia of right patella; Translations: [Chondromalacia of right patella] Other connective tissue disease (1 source) Ganglion cyst of left dorsal wrist; Translations: [Ganglion cyst of dorsum of left wrist] Onset: 06-08-2018 06-08-2018 Other non-traumatic joint disorders (1 source) Bone spur of vertebra; Translations: [Osteophyte, vertebrae] 09-23-2024 Chronic Other non-traumatic joint disorders (2 sources) Osteophyte, vertebrae; Translations: [Osteophyte, vertebrae] Onset: 09-23-2024 Chronic Spondylosis; intervertebral disc disorders; other back problems (3 sources) Cervical radiculopathy; Translations: [Radiculopathy, cervical region] Onset: 09-23-2024 09-23-2024 Episodic Past or Other Problems Problem Classification Problem Date Documented Da te Episodic/Chronic Other and delivery including normal (1 source) Normal ; Translations: [Encounter for supervision of other normal , unspecified trimester] Onset: 05-14-2006 05-14-2006 Episodic Results Test Name Value Interpretation Reference Range Facil ity CT [facility] SP[facility] WO IV CONTRAST Interpreted By: Yo Quigley, STUDY: CT CERVICAL SPINE WO IV CONTRAST; ; 09/23/2024 10:41 am INDICATION: Signs/Symptoms:NECK PAIN, R SIDED RADICULOPATHY, PRIOR SUGERY. COMPARISON: None. ACCESSION NUMBER(S): [id number] ORDERING CLINICIAN: AVA CABRERA TECHNIQUE: Serial axial CT images obtained of the cervical spine. Images reformatted in the coronal and sagittal projection All CT examinations are performed with 1 or more of the following dose reduction techniques: Automated exposure control, adjustment of mA and/or kv according to patient's size, or use of iterative reconstruction techniques. FINDINGS: Alignment of the cervical spine demonstrates straightening normal cervical lordosis. There is no listhesis. Vertebral body heights are preserved. No prevertebral soft tissue swelling. Anterior plate and screw fixation C5/6 with interbody osseous fusion at this level. There is mild loss disc space height C4/5 and C6/7. Skull base and occipital condyles are unremarkable. Ring of C1 is unremarkable. Dens and remainder of C2 is unremarkable. Is unremarkable Evaluation of spinal levels are as follows: C2/3 demonstrates no narrowing of the spinal canal. Foramina are unremarkable C3/4 demonstrates no narrowing of the spinal canal or foramina C4/5 demonstrates posterior disc osteophyte complex with resultant mild canal stenosis. There is no foraminal narrowing C5/6 demonstrates no narrowing of the spinal canal or foramina C6/7 demonstrates mild posterior disc osteophyte complex. No definite canal stenosis given the artifact there is mild right foraminal narrowing. Left foramina is unremarkable Visualized portions soft tissue neck are unremarkable. IMPRESSION: 1. No acute osseous abnormality cervical spine. 2. Interbody osseous fusion with anterior plate and screw fixation demonstrated C5/6. No narrowing of the spinal canal or foramina at this level. 3. Posterior disc osteophyte complex in particular C4/5 and C6/7. There is no definite canal stenosis MACRO: None Signed by: Yo Quigley 09/23/2024 11:47 AM Dictation workstation: [id number] [facility] CT Cervical spine WO contras ton 09-23-2024 1. No acute osseous abnormality cervical spine. 2. Interbody osseous fusion with anterior plate and screw fixation demonstrated C5/6. No narrowing of the spinal canal or foramina at this level. 3. Posterior disc osteophyte complex in particular C4/5 and C6/7. There is no definite canal stenosis MACRO: None Signed by: Yo Quigley 09/23/2024 11:47 AM Dictation workstation: [id number] [facility] Interpreted By: Yo Quigley, STUDY: CT CERVICAL SPINE WO IV CONTRAST; ; 09/23/2024 10:41 am INDICATION: Signs/Symptoms:NECK PAIN, R SIDED RADICULOPATHY, PRIOR SUGERY. COMPARISON: None. ACCESSION NUMBER(S): [id number] ORDERING CLINICIAN: AVA CABRERA TECHNIQUE: Serial axial CT images obtained of the cervical spine. Images reformatted in the coronal and sagittal projection All CT examinations are performed with 1 or more of the following dose reduction techniques: Automated exposure control, adjustment of mA and/or kv according to patient's size, or use of iterative reconstruction techniques. FINDINGS: Alignment of the cervical spine demonstrates straightening normal cervical lordosis. There is no listhesis. Vertebral body heights are preserved. No prevertebral soft tissue swelling. Anterior plate and screw fixation C5/6 with interbody osseous fusion at this level. There is mild loss disc space height C4/5 and C6/7. Skull base and occipital condyles are unremarkable. Ring of C1 is unremarkable. Dens and remainder of C2 is unremarkable. Is unremarkable Evaluation of spinal levels are as follows: C2/3 demonstrates no narrowing of the spinal canal. Foramina are unremarkable C3/4 demonstrates no narrowing of the spinal canal or foramina C4/5 demonstrates posterior disc osteophyte complex with resultant mild canal stenosis. There is no foraminal narrowing C5/6 demonstrates no narrowing of the spinal canal or foramina C6/7 demonstrates mild posterior disc osteophyte complex. No definite canal stenosis given the artifact there is mild right foraminal narrowing. Left foramina is unremarkable Visualized portions soft tissue neck are unremarkable. [facility] Yo Quigley MD - 09/23/2024 Interpreted By: Yo Quigley, STUDY: CT CERVICAL SPINE WO IV CONTRAST; ; 09/23/2024 10:41 am INDICATION: Signs/Symptoms:NECK PAIN, R SIDED RADICULOPATHY, PRIOR SUGERY. COMPARISON: None. ACCESSION NUMBER(S): [id number] ORDERING CLINICIAN: AVA CABRERA TECHNIQUE: Serial axial CT images obtained of the cervical spine. Images reformatted in the coronal and sagittal projection All CT examinations are performed with 1 or more of the following dose reduction techniques: Automated exposure control, adjustment of mA and/or kv according to patient's size, or use of iterative reconstruction techniques. FINDINGS: Alignment of the cervical spine demonstrates straightening normal cervical lordosis. There is no listhesis. Vertebral body heights are preserved. No prevertebral soft tissue swelling. Anterior plate and screw fixation C5/6 with interbody osseous fusion at this level. There is mild loss disc space height C4/5 and C6/7. Skull base and occipital condyles are unremarkable. Ring of C1 is unremarkable. Dens and remainder of C2 is unremarkable. Is unremarkable Evaluation of spinal levels are as follows: C2/3 demonstrates no narrowing of the spinal canal. Foramina are unremarkable C3/4 demonstrates no narrowing of the spinal canal or foramina C4/5 demonstrates posterior disc osteophyte complex with resultant mild canal stenosis. There is no foraminal narrowing C5/6 demonstrates no narrowing of the spinal canal or foramina C6/7 demonstrates mild posterior disc osteophyte complex. No definite canal stenosis given the artifact there is mild right foraminal narrowing. Left foramina is unremarkable Visualized portions soft tissue neck are unremarkable. IMPRESSION: 1. No acute osseous abnormality cervical spine. 2. Interbody osseous fusion with anterior plate and screw fixation demonstrated C5/6. No narrowing of the spinal canal or foramina at this level. 3. Posterior disc osteophyte complex in particular C4/5 and C6/7. There is no definite canal stenosis MACRO: None Signed by: Yo Quigley 09/23/2024 11:47 AM Dictation workstation: [id number] [facility] Work Phone: Radiology Study observation (narrative) [facility] Work Phone: CT Cervical spine WO contras tOrdered By: oY Quigley on 09-23-2024 [facility] Work Phone: XR KNEE RIGHT 4+ VIEWS (SPEC MILTON VIEWS IN COMMENTS)on 04-26-2019 XR KNEE RIGHT 4+ VIEWS (SPECIFY VIEWS IN COMMENTS) EXAMINATION: XR KNEE RIGHT 4+ VIEWS (SPECIFY VIEWS IN COMMENTS) HISTORY: ORDERING SYSTEM PROVIDED HISTORY: right knee pain, TECHNOLOGIST PROVIDED HISTORY: Reason for exam: right knee pain, no injury Illness/Other Cancer History: u Surgery, RadiationHistory: u Encounter Type: Initial Mechanism of injury: no Additional signs and symptoms: no ORDERING SYSTEM PROVIDED DIAGNOSIS CODES: M25.561 Right knee pain, unspecified chronicity COMPARISON: None FINDINGS: Four views of the right knee. No acute fracture. Joint alignment is anatomic. Joint spaces are preserved. Djcmx-zx-sydquekv joint effusion. Soft tissues are within normal limits. IMPRESSION: 1. No acute osseous abnormality. 2. Wzgfa-gx-krwjxljy joint effusion is suggested. /shravan Workstation ID: [id number] Dictated by: DENNY AMRIANO on ThuApril 27, 2019 10:20:46 AM EDT Transcribed by: KAYDEN MORALES on ThuApril 27, 2019 10:58:26 AM EDT Finalized by: DENNY MARIANO on ThuApril 27, 2019 5:58:52 PM EDT Normal [facility] Comment on above: Order Comment: Reaso n for exam?:right knee pain, no injury Injury/Trauma or Illness?:Illness/Other How long have you had these symptoms (acute/chronic)?:Chronic History of cancer?:u Surgeries, chemotherapy, or radiation?:u Type of Exam?:Initial Mechanism of injury?:no Additional signs and symptoms?:no Vital Signs Date Time Vital Sign Value Performing Clinician Facility 09-23-2024 11:38-0400 Diastolic blood pressure 68 mm[Hg] Ava Cabrera MD Work Phone: [facility] 09-23-2024 11:38-0400 Heart rate 79 /min Ava Cabrera MD Work Phone: [facility] 09-23-2024 11:38-0400 Respiratory rate 17 /min Ava Cabrera MD Work Phone: [facility] 09-23-2024 11:38-0400 SaO2% (BldA) [Mass fraction] 96 % Ava Cabrera MD Work Phone: [facility] 09-23-2024 11:38-0400 Systolic blood pressure 113 mm[Hg] Ava Cabrera MD Work Phone: [facility] 09-23-2024 09:04-0400 Body height 167.6 cm Ava Cabrera MD Work Phone: [facility] 09-23-2024 09:04-0400 Body mass index (BMI) [Ratio] 32.28 kg/m2 Ava Cabrera MD Work Phone: [facility] 09-23-2024 09:04-0400 Body weight 90.72 kg Ava Cabrera MD Work Phone: [facility] 09-23-2024 09:01-0400 Body temperature 97.39 [degF] Ava Cabrera MD Work Phone: [facility] 04-26-2019 15:41-0400 BMI (Body Mass Index) 25.82 kg/m2 Jose Kirby [facility] 04-26-2019 15:41-0400 Body weight 72.58 kg Jose Kirby [facility] 04-26-2019 15:41-0400 Height 167.6 cm Jose Kirby [facility] Encounters Encounter Date Encounter Type Care Provider Facility Start: 09-23-2024 End: 09-23-2024 Emergency department patient visit Ava Cabrera MD Work Phone: [facility] Comment on above: Cervical radiculopat hy (Primary Dx); Cervical osteophyte Start: 03-21-2024 End: 03-21-2024 ambulatory JILLIAN SANTOS Facility:[facility] Start: 03-21-2024 End: 03-21-2024 Patient encounter procedure Jenn Vázquez OD Work Phone: Optometry Comment on above: Hyperopia, bilateral (Primary Dx); Regular astigmatism, bilateral; Presbyopia Start: 04-26-2019 End: 04-30-2019 Patient encounter procedure JOSE KIRBY [facility] Start: 04-26-2019 End: 04-26-2019 Office outpatient visit 15 minutes Jose Kirby Work Phone: [facility] Comment on above: Chondromalacia of ri ght patella (Primary Dx) Procedures Date Procedure Procedure Detail Performing Clinician Start: 09-23-2024 Ct cervical spine w/ o contrast material Ava Cabrera MD Work Phone: Start: 09-07-2019 Follow-up visit Plan of Treatment Date Care Activity Detail Author Start: 2028 Zoster Vaccines (1 of 2) Zoster Vaccines (1 of 2) [facility] Start: 07-31-2024 COVID-19 Vaccine ( season) COVID-19 Vaccine () [facility] Start: 07-31-2024 Influenza vaccination [facility] Start: 11-30-2023 Behavioral Health Screening Behavioral Health Screening [facility] Start: 07-31-2023 Covid-19 Vaccine ( season) Covid-19 Vaccine () [facility] Start: 2023 Diabetes Screening Diabetes Screening [facility] Start: 2023 Lipid panel Lipid Screening [facility] Start: 2023 Screening for malignant neoplasm of colon [facility] Start: 07-13-2020 Screening for malignant neoplasm of cervix [facility] Start: 07-31-2019 Influenza vaccination given SEQUENTIAL INFLUENZA VACCINE (Season Ended) [facility] Start: 2018 Screening for malignant neoplasm of breast [facility] Start: 2000 DTaP/Tdap/Td Vaccines (1 - Tdap) DTaP/Tdap/Td Vaccines (1 - Tdap) [facility] Start: 1999 Screening for malignant neoplasm of cervix [facility] Start: 1997 Hepatitis B Vaccine (1 of 3 - 19+ 3-dose series) Hepatitis B Vaccine (1 of 3 - 19+ 3-dose series) [facility] Start: 1997 Hepatitis B Vaccines (1 of 3 - 19+ 3-dose series) Hepatitis B Vaccines (1 of 3 - 19+ 3-dose series) [facility] Start: 1997 Urine microalbumin profile DTaP,Tdap,Td Vaccine (1 - Tdap) [facility] Start: 1996 Hepatitis C screening Hepatitis C Screening [facility] Start: 1984 Pneumococcal Vaccine: Pediatrics (0 to 5 Years) and At-Risk Patients (6 to 64 Years) (1 of 2 - PCV) Pneumococcal Vaccine: Pediatrics (0 to 5 Years) and At-Risk Patients (6 to 64 Years) (1 of 2 - PCV) [facility] Start: 1981 History and physical examination, annual for health maintenance Wellness Visit [facility] Start: 1979 MMR Vaccines (1 of 1 - Standard series) MMR Vaccines (1 of 1 - Standard series) [facility] Start: 1978 HIV screening HIV Screening [facility] Start: 1978 Lipid panel Lipid Panel [facility] Start: 1978 Screening for malignant neoplasm of cervix PAP SMEAR [facility] Start: 1978 Screening for malignant neoplasm of colon [facility] Start: 1978 Screening mammography Mammogram [facility] Start: 1978 Tetanus vaccination TETANUS EVERY 10 YR [facility] Start: 1978 Yearly Adult Physical Yearly Adult Physical [facility] Payers Date Payer Category Payer Managed Care (Private) MEDICAL M [employer] SU[employer] MED [id number] 2017 Unknown [id number] 2017 Unknown MMO MED MUTUAL S UPERMED PPO xxxxxxxxxxxx 2017-Present xxxxxxxxxxxx [id number] 2017 Unknown EYE CARE PLAN OF [facility] [employer]ISION [id number] 11/30/2017-Present [address] [place] [address] Indemnity [id number] 1978 Unknown [id number] 1978 Unknown [id number] 1978 Unknown [id number] Social History Date Type Detail Facility Start: 04-26-2019 End: 03-21-2024 Tobacco smoking status NHIS Former smoker [facility] Start: 1978 Sex Assigned At Not on file [facility] End: 04-30-2006 History of tobacco use Current smoker [facility] End: 04-30-2006 History of tobacco use Cigarette Smoker [facility] Start: 03-21-2024 End: 09-23-2024 Tobacco use and exposure Smokeless tobacco non-user [facility] Start: 03-21-2024 End: 09-23-2024 Alcohol intake Current drinker of alcohol (finding) [facility] Start: 07-13-2022 End: 03-21-2024 History of Social function [facility] Start: 07-13-2022 End: 03-21-2024 Tobacco use panel [facility] National Score (1-100), lower number is lower risk 66 [facility] Start: 09-23-2024 Tobacco smoking stat us NHIS Smokes tobacco daily [facility] Work Phone: Start: 09-13-2024 End: 09-23-2024 Exposure to SARS-CoV-2 (event) Not sure [facility] Work Phone: Hospital Discharge instructions 09-23-2024 Discharge InstructionsAttachments Note Date & Type Note Facility 09-23-2024 Hospital Discharg e instructions Ava Cabrrea MD - 09/23/2024 12:14 PM EDT ICE TO NECK PREDNISONE TAPERING DOSE PERCOCET FOR PAIN [facility] FOLLOW UP The following attachments cannot be sent through Care Everywhere.Radiculopathy of the neck and back (including sciatica) (Mauritian)Radiculopathy Discharge Instructions (Mauritian)documented in this encounter [facility] Work Phone: Emergency department Note 09-23-2024 Ava Cabrera MD - 09/23/2024 8:51 AM EDT Note Date & Type Note Facility 09-23-2024 Emergency department Note Images from the original note were not included. Chief Complaint: NECK PAIN Is a 44-year-old female who has had neck pain for the past 2 weeks 8 years ago she had a previous disc surgery. She states the pain was a dull ache last week but intensified this week with a radiculopathy with pain rating to the shoulder blade down the forearm and into the thumb and index finger with paresthesias and a tingling sensation. States the pain was so severe this morning she became nauseated and felt like she was going to pass out. She denies any headache no fever or chills. She was on her way to see her primary care and diverted here to the emergency department for further evaluation. She denies any chest pain no shortness of breath no difficulty breathing she had some slight nausea but no abdominal pains has had no fever or chills. Review of Systems Constitutional: Negative for chills and fever. HENT: Negative for sore throat and trouble swallowing. Eyes: Negative. Respiratory: Negative for cough and shortness of breath. Cardiovascular: Negative for chest pain and palpitations. Gastrointestinal: Positive for nausea. Negative for abdominal pain, diarrhea and vomiting. Genitourinary: Negative for hematuria, pelvic pain and urgency. Musculoskeletal: Positive for arthralgias, myalgias, neck pain and neck stiffness. Skin: Negative for rash. Neurological: Positive for numbness. Negative for tremors, weakness and light-headedness. Psychiatric/Behavioral: Negative. All other systems reviewed and are negative. Physical Exam Vitals reviewed. Constitutional: Comments: Is awake and cooperative she is somewhat teary-eyed and seems uncomfortable but not toxic or an extremis at this time HENT: Head: Normocephalic and atraumatic. Right Ear: Tympanic membrane normal. Left Ear: Tympanic membrane normal. Nose: Nose normal. Mouth/Throat: Mouth: Mucous membranes are moist. Pharynx: Oropharynx is clear. No oropharyngeal exudate or posterior oropharyngeal erythema. Eyes: Extraocular Movements: Extraocular movements intact. Conjunctiva/sclera: Conjunctivae normal. Pupils: Pupils are equal, round, and reactive to light. Neck: Thyroid: No thyroid mass. Trachea: Trachea normal. Cardiovascular: Rate and Rhythm: Normal rate. Pulses: Normal pulses. Heart sounds: No murmur heard. Pulmonary: Effort: Pulmonary effort is normal. Breath sounds: Normal breath sounds. No wheezing or rhonchi. Abdominal: General: There is no distension. Palpations: Abdomen is soft. There is no mass. Tenderness: There is no abdominal tenderness. Musculoskeletal: General: No swelling or deformity. Cervical back: No edema, erythema, signs of trauma, rigidity or crepitus. Pain with movement present. Decreased range of motion. Lymphadenopathy: Cervical: No cervical adenopathy. Skin: General: Skin is warm and dry. Capillary Refill: Capillary refill takes less than 2 seconds. Neurological: Mental Status: She is alert. GCS: GCS eye subscore is 4. GCS verbal subscore is 5. GCS motor subscore is 6. Cranial Nerves: Cranial nerves 2-12 are intact. Motor: Motor function is intact. 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 Patient had Toradol 60 mg IM ordered as well as Solu-Medrol 125 mg IM and Percocet 1 tablet p.o. as well as CT scan of her neck at this time. [place] markedly improved after above treatment. CT scan shows significant osteophyte complexes at C5-6 C4-5 with intact previous surgical procedure with screw fixation and anterior plate. Patient will be started on prednisone tapering dose as well as Percocet for pain was referred to pain management and or her [facility] cervical demolition specialist Diagnoses as of 09/23/24 1217 Cervical radiculopathy Cervical osteophyte Ava Cabrera MD 09/23/24 1217 documented in this encounter [facility] Work Phone: Physician Emergency department Note 09-23-2024 Ava Cabrera MD - 09/23/2024 8:51 AM EDT Note Date & Type Note Facility 09-23-2024 Physician Emergency department Note Images from the original note were not included. Chief Complaint: NECK PAIN Is a 44-year-old female who has had neck pain for the past 2 weeks 8 years ago she had a previous disc surgery. She states the pain was a dull ache last week but intensified this week with a radiculopathy with pain rating to the shoulder blade down the forearm and into the thumb and index finger with paresthesias and a tingling sensation. States the pain was so severe this morning she became nauseated and felt like she was going to pass out. She denies any headache no fever or chills. She was on her way to see her primary care and diverted here to the emergency department for further evaluation. She denies any chest pain no shortness of breath no difficulty breathing she had some slight nausea but no abdominal pains has had no fever or chills. Review of Systems Constitutional: Negative for chills and fever. HENT: Negative for sore throat and trouble swallowing. Eyes: Negative. Respiratory: Negative for cough and shortness of breath. Cardiovascular: Negative for chest pain and palpitations. Gastrointestinal: Positive for nausea. Negative for abdominal pain, diarrhea and vomiting. Genitourinary: Negative for hematuria, pelvic pain and urgency. Musculoskeletal: Positive for arthralgias, myalgias, neck pain and neck stiffness. Skin: Negative for rash. Neurological: Positive for numbness. Negative for tremors, weakness and light-headedness. Psychiatric/Behavioral: Negative. All other systems reviewed and are negative. Physical Exam Vitals reviewed. Constitutional: Comments: Is awake and cooperative she is somewhat teary-eyed and seems uncomfortable but not toxic or an extremis at this time HENT: Head: Normocephalic and atraumatic. Right Ear: Tympanic membrane normal. Left Ear: Tympanic membrane normal. Nose: Nose normal. Mouth/Throat: Mouth: Mucous membranes are moist. Pharynx: Oropharynx is clear. No oropharyngeal exudate or posterior oropharyngeal erythema. Eyes: Extraocular Movements: Extraocular movements intact. Conjunctiva/sclera: Conjunctivae normal. Pupils: Pupils are equal, round, and reactive to light. Neck: Thyroid: No thyroid mass. Trachea: Trachea normal. Cardiovascular: Rate and Rhythm: Normal rate. Pulses: Normal pulses. Heart sounds: No murmur heard. Pulmonary: Effort: Pulmonary effort is normal. Breath sounds: Normal breath sounds. No wheezing or rhonchi. Abdominal: General: There is no distension. Palpations: Abdomen is soft. There is no mass. Tenderness: There is no abdominal tenderness. Musculoskeletal: General: No swelling or deformity. Cervical back: No edema, erythema, signs of trauma, rigidity or crepitus. Pain with movement present. Decreased range of motion. Lymphadenopathy: Cervical: No cervical adenopathy. Skin: General: Skin is warm and dry. Capillary Refill: Capillary refill takes less than 2 seconds. Neurological: Mental Status: She is alert. GCS: GCS eye subscore is 4. GCS verbal subscore is 5. GCS motor subscore is 6. Cranial Nerves: Cranial nerves 2-12 are intact. Motor: Motor function is intact. 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 Patient had Toradol 60 mg IM ordered as well as Solu-Medrol 125 mg IM and Percocet 1 tablet p.o. as well as CT scan of her neck at this time. [place] markedly improved after above treatment. CT scan shows significant osteophyte complexes at C5-6 C4-5 with intact previous surgical procedure with screw fixation and anterior plate. 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 Author Type: [employer]ER Type: Progress Notes Filed: 03/21/2024 15:09 Note Text: ASSESSMENT/PLAN: 1. Hyperopia, bilateral - ICD9: 367.0, ICD10: H52.03 (primary diagnosis) 2. 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 Presbyopia - ICD9: 367.4, ICD10: H52.4 Can continue to wear her glasses as desired. Continue to monitor her ocular health . Recommended yearly exams. Jenn Vázquez OD [facility] Instructions 03-21-2024 Patient Instructions Note Date & Type Note Facility 03-21-2024 Instructions Jenn Vázquez OD - 03/21/2024 3:07 PM EDT ASSESSMENT/PLAN: 1. Hyperopia, bilateral - ICD9: 367.0, ICD10: H52.03 (primary diagnosis) 2. 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 Presbyopia - ICD9: 367.4, ICD10: H52.4 Can continue to wear her glasses as desired. Continue to monitor her ocular health . Recommended yearly exams. documented in this encounter [facility] History of Present illness Narrative 03-21-2024 Jenn Vázquez OD - 03/21/2024 3:06 PM EDT Note Date & Type Note Facility 03-21-2024 History of Presen t illness Narrative ASSESSMENT/PLAN: 1. Hyperopia, bilateral - ICD9: 367.0, ICD10: H52.03 (primary diagnosis) 2. 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 Presbyopia - ICD9: 367.4, ICD10: H52.4 Can continue to wear her glasses as desired. Continue to monitor her ocular health . Recommended yearly exams. Jenn Vázquez OD documented in this encounter [facility] Evaluation note Note Date & Type Note Facility Evaluation note Diagnosis Hyperopia, bilateral- Primary Regular astigmatism, bilateral Presbyopia documented in this encounter [facility] Evaluation note Note Date & Type Note Facility Evaluation note Diagnosis Cervical radiculopathy- Primary Brachial neuritis or radiculitis nos Cervical osteophyte documented in this encounter [facility] Work Phone: Summary Purpose Family History No Family History Records FoundNo Family History Records FoundNo Family History Records FoundNo Family History Records Found Advance Directives No Advanced Directives Records FoundDocuments on File Type Date Recorded 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 She has had a long history of right knee pain and grinding. It bothers her with stairs and kneeling. Over the past 2 to 3 weeks, it got significantly worse. It felt like it was catching; she had fluid, and it gave out, so she decided to come in tosee me today although it is getting somewhat better. ALLERGIES None. MEDICATIONS control pill. REVIEW OF SYSTEMS No chest pain or shortness of breath. No PND or orthopnea. No bowel or bladder symptoms. No back orhip pain. PHYSICAL EXAMINATION General: The patient is a pleasant, well-developed, well-nourished white female in no acute distress. Her general exam is unremarkable. Extremities: Her right knee has a small effusion. She has severe patellofemoral crepitation withoutmedial or lateral instability, Nicole sign, pivot shift, drawer sign, or Fabio sign. X-RAY Four views of the right knee reveals no significant abnormalities other than perhaps just the very smallest osteophyte at the patella. The joint spaces are all maintained and the patella tracks well. IMPRESSION Severe chondromalacia patella. PLAN I have discussed the options with her. It is improving so she has decided she does not want to do anything today. I suggested anti-inflammatories in the form of Aleve, 2 in the morning and 2 at night, knee braces, internal extension exercises. I told her it would just need to be an elastic knee brace, not a hinged one. We talked about steroid injections and arthroscopy. For now, we are going to continue conservative care, and I would see her back p.r.n. documented in this encounter Assessments Diagnosis Chondromalacia of right patella- Primary Additional Source Comments INFORMATION SOURCE (unrecogn ized section and content) DATE CREATED AUTHOR 07/11/2019 [facility] [employer] DATE CREATED AUTHOR AUTHOR'S ORGANIZ ATION 09/07/2019 [employer] DATE CREATED AUTHOR AUTHOR'S ORGANIZ ATION 03/22/2024 [facility] DATE CREATED AUTHOR AUTHOR'S ORGANIZ ATION 09/26/2024 [facility] Reason for Visit (unrecogniz ed section and content) Reason Comments Pain Reason Comments Yearly Exam Reason Comments Back Pain Patient reports incr ease in in mid upper back pain this past week, she reports that the pain radiates into her R shoulder and down her R arm. Denies injury, previous neck surgery Source Comments (unrecognize d section and content) In the event this informatio n is protected by the Federal Confidentiality of Alcohol and Drug Abuse Patient Records regulations: The Federal rules restrict any use of the information to criminally investigate or prosecute any alcohol or drug abuse patient.[facility] Care Teams (unrecognized sec tion and content) Inventory Manager Relationship Specialty Start Date End Date Jillian Santos CNP PCP - General Family Medicine 01/06/23 Inventory Manager Relationship Specialty Start Date End Date Andrew Santos APRN-CNP [address] [place] [address] PCP - General Family Medicine 09/23/24 Scheduled Active and Recently Administ ered Medications (unrecognized section and content) Medication Order 09/21/2024 09/22/2024 09/23/2024 ketorolac (Toradol) injection 60 mg (COMPLETED) 60 mg, intramuscular, Once, On Thu09/23/24 at 0920, For 1 dose 926 (Given - Provid er: Susan De Luna RN) methylPREDNISolone sod succinate (SOLU-Medrol) injection 125 mg (COMPLETED) 125 mg, intramuscular, Once, On Thu09/23/24 at 0920, For 1 dose 926 (Given - Provid er: Susan De Luna RN) oxyCODONE (Roxicodone) immediate release tablet 5 mg (COMPLETED) 5 mg, oral, Once, On Thu09/23/24 at 0920, For 1 dose, If ordered PRN for pain, nurse is permitted to administer this medication for higher pain scores based on patient preference? Yes, Indications: pain 0927 (Given - Provid er: Susan De Luna RN) FOR RECORDS PERTAINING TO PATIENTS WHO ARE OR HAVE BEEN ENROLLED IN A CHEMICAL DEPENDENCY/SUBSTANCEABUSE PROGRAM, SOME INFORMATION MAY BE OMITTED. This clinical summary was aggregated from multiple sources. Caution should be exercised in using it in the provision of clinical care. This summary normalizes information from multiple sources, and as a consequence, information in this document may materially change the coding, format and clinical context of patient data. In addition, data may be omitted in some cases. CLINICAL DECISIONS SHOULD BE BASED ON THE PRIMARY CLINICAL RECORDS. [employer] provides no warranty or guarantee of the accuracy or completeness of information in this document.
== END 2024-09-27 12:27 | disposition home or self-care (01) ==
PROVIDERS: Emergency Provider Emergency Medicine; PCP Nurse Practitioner Family; Visit Provider Emergency Medicine
DX: M54.2 Cervicalgia (principal); M54.12 Radiculopathy, cervical region; Z98.1 Arthrodesis status; F41.9 Anxiety disorder, unspecified; Z79.899 Other long term (current) drug therapy; F17.210 Nicotine dependence, cigarettes, uncomplicated
CPT/HCPCS: 99282